=== PATIENT | male | born 1990 | race Caucasian/White ===

== ENCOUNTER 2021-02-05 16:17 | Emergency (ER) | payer OTHER ==
[~2021-02-05] VITALS: Ht 190.5 cm; Wt 78.5 kg
[~2021-02-05 16:17] MED LIST: CRUTCH4 USE; HYDACE5 PO; IBUP400 PO; OMEPRAZOLE MAGN20 MG PO; Percocet 5-3251 EACH PO
[2021-02-05 17:03] LABS: BASOPHILS ABSOLUTE AUTO 0.03 K/mm3 (0.00-0.23); BASOPHILS PERCENT AUTO 1 % (0-2); EOSINOPHILS ABSOLUTE AUTO 0.15 K/mm3 (0.00-0.68); EOSINOPHILS PERCENT AUTO 2 % (0-6); Hematocrit 42.6 % (37.0-53.0); Hemoglobin 14.5 g/dL (13.5-17.5); IMMATURE GRAN ABSOLUTE AUTO 0.01 K/mm3 (0.00-0.10); IMMATURE GRAN PERCENT AUTO 0 % (0-1); LYMPHOCYTES ABSOLUTE AUTO 2.09 K/mm3 (0.84-5.20); LYMPHOCYTES PERCENT AUTO 32 % (21-46); MONOCYTES PERCENT AUTO 6 % (4-13); Mean Corpuscular Volume 88 fL (80-100); NEUTROPHILS PERCENT AUTO 59 % (41-73); Platelet Count 221 K/mm3 (150-400); RDW Coefficient Variation 11.9 % (11.7-14.2); RDW Standard Deviation 38.9 fL (35.1-46.3); Red Blood Cell Count 4.83 M/mm3 (4.30-5.90); White Blood Cell Count 6.58 K/mm3 (4.00-11.30)
[2021-02-05 17:15] LABS: Alanine Aminotransfer (ALT/SGP 31 U/L (12-78); Albumin, Blood 4.3 g/dL (3.4-5.0); Albumin/Globulin Ratio 1.4 (0.8-1.8); Alk Phos 61 U/L (50-136); Anion Gap 5 mmol/L (6-16); Aspartate Aminotrans (AST/SGOT 27 U/L (12-37); Bilirubin, Total 0.5 mg/dL (0.1-1.0); Blood Urea Nitrogen 17 mg/dL (8-24); Bun/Creatinine Ratio 17.7 (12.0-20.0); CO2, Blood 26 mmol/L (21-32); Calcium, Blood 9.1 mg/dL (8.5-10.1); Chloride, Blood 108 mmol/L (98-108); Creatinine, Blood 0.96 mg/dL (0.60-1.20); Globulin, Blood 3.1 g/dL (2.2-4.0); Glomerular Filtration Rate >60 (60-); Glucose, Blood 95 mg/dL (70-99); Potassium, Blood 3.8 mmol/L (3.5-5.5); Sodium, Blood 139 mmol/L (136-145); Total Protein, Blood 7.4 g/dL (6.4-8.2)
[2021-02-05] MEDS ORDERED: Percocet 5-3251 EACH PO (20:25)
[2021-02-05] MEDS ORDERED: BACTRIM DS TAB1 EAC1 PO (20:25)
== END 2021-02-05 20:30 | disposition home or self-care (01) ==
LOC: ER 16:17
PROVIDERS: Physician Assistant
DX: S62.623B Displaced fracture of middle phalanx of left middle finger, initial encounter for open fracture (principal); S62.625B Displaced fracture of middle phalanx of left ring finger, initial encounter for open fracture; Z88.1 Allergy status to other antibiotic agents; Z88.5 Allergy status to narcotic agent; Z79.899 Other long term (current) drug therapy; W28.XXXA Contact with powered lawn mower, initial encounter
CPT/HCPCS: 11012; 12002; 36415; 73130; 80053; 85025; 90714; 96365-59; 96375-59; 96376-59; 99283-25; A9270; A9270-GY; J1170; J2405; J7030